=== PATIENT | male | born 1995 | race Caucasian/White ===

== ENCOUNTER 2025-02-06 14:04 | Emergency (ER) | payer OTHER, SELFPAY ==
[2025-02-06] VITALS (17 sets, daily range): BP systolic 137–162; BP diastolic 69–89; PULSE 74–102; RESP 15–16; TEMP 37.7; O2SAT 96–100; BMI 35.7
[2025-02-06] MEDS: PROCHLORPERAZINE 10 MG/2 ML VIAL 5 MG IV (18:36)
[2025-02-06] MEDS: diphenhydrAMINE 50 MG/ML VIAL IV (18:36)
[2025-02-06] MEDS: SODIUM CHLORIDE 0.9% 1,000 ML 1000 ML IV (18:36)
[2025-02-06] MEDS: KETOROLAC 30 MG/ML VIAL 15 MG IV (18:38)
[2025-02-06 18:40] LABS: Add Manual Diff / Slide Review NO; Hematocrit 39.2 % (41-53); Hemoglobin 14.0 g/dL (13.5-17.5); Lymphocytes Absolute Auto 500 /uL (1100-4500); Mean Corpuscular HGB Conc 35.7 % (30-36); Mean Corpuscular Hemoglobin 27.9 PG (26-34); Mean Corpuscular Volume 78.1 fL (80-100); Platelet Count 253 X10^3/uL (150-400)
[2025-02-06 18:44] LABS: Albumin 4.9 g/dL (3.5-5.0); Albumin Globulin Ratio 1.5 (1.0-2.8); Blood Urea Nitrogen 11 mg/dL (9-20); Chloride 101 mmol/L (98-107); Globulin 3.2 g/dL (1.7-4.1); Potassium 4.3 mmol/L (3.4-5.1); Sodium 134 mmol/L (137-145); Total Protein 8.1 g/dL (6.3-8.2)
[2025-02-06 18:47] LABS: Alanine Aminotransferase 123 IU/L (<50); Alkaline Phosphatase 88 U/L (38-126); Calcium 9.7 mg/dL (8.4-10.2); Carbon Dioxide 22 mmol/L (22-32); Estimated Glomerular Filt Rate > 60 mL/min (>60); Glucose 105 mg/dL (70-99); HEMOLYSIS < 15 (0-50); Lipase 160 U/L (23-300); Magnesium 2.0 mg/dL (1.6-2.3)
--- NOTE | 2025-02-06 18:49 | ED.HA ---
HPI - Headache General Chief Complaint: Headache Stated Complaint: Severe headache and nausea Time Seen by Provider: 02/06/25 18:24 Mode of arrival: Wheelchair History of Present Illness HPI Narrative: 29 year old male with no history of recurrent headaches, was well last night, awake this morning with global headache. No injury or trauma. No blurred vision or double vision, denies dizziness. Took Tylenol without relief. Denies recent coughing shortness of breath. Did have chest pain evaluation in [place] Friday, with some shortness of breath at the time. Denies shortness of breath or chest pain now. No focal weakness to face arm or leg. No focal numbness to face arm or leg. Has nausea and emesis x3, no blood in emesis. No loose stools diarrhea. Denies abdominal pain. Denies fevers or chills. Denies neck pain. Related Data Allergies Allergy/AdvReac Type Severity Reaction Status Date / Time No Known Drug Allergies Allergy Verified 02/06/25 14:24 Patient History Social History Smoking Status: Never smoker Smoking Status: Never smoker Exam Narrative Exam Narrative: GENERAL: Well-developed patient, in mild distress. HEAD: Atraumatic. Normocephalic. No scalp lesions obvious. EYES: Pupils equal round and reactive. Extraocular motions intact. No scleral icterus. No injection or drainage. ENT: No obvious facial droop, no craniofacial trauma. NECK: Trachea midline. No neck tenderness, moves head [id number] without discomfort, chin to chest without discomfort. CARDIOVASCULAR: Regular rate and rhythm without murmurs, gallops, or rubs. RESPIRATORY: Clear to auscultation. Breath sounds equal bilaterally. No wheezes, rales, or rhonchi. GASTROINTESTINAL: Abdomen soft, non-tender, nondistended. EXTREMITIES: No edema or joint tenderness. BACK: Nontender without deformity or crepitance. No flank tenderness. NEURO: AOx3. Motor functions grossly nonfocal. SKIN: No rash or erythema of visible areas Initial Vital Signs Initial Vital Signs: Vital Signs Temperature 99.8 F H 02/06/25 14:20 Pulse Rate 81 02/06/25 14:20 Respiratory Rate 15 02/06/25 14:20 Blood Pressure 161/80 H 02/06/25 14:20 Pulse Oximetry 100 02/06/25 14:20 Oxygen Delivery Method Room Air 02/06/25 14:20 Course Orders Ordered: Discontinued Medications Hydrocodone Bitart/Acetaminophen (Hydrocodone/Acet 5/325 Tablet) 1 tab PO NOW ONE Stop: 02/06/25 22:01 Last Admin: 02/06/25 22:15 Dose: 1 tab Documented By: FORTUNATO Diphenhydramine HCl (Diphenhydramine 50 Mg/Ml Vial) 50 mg IV NOW ONE Stop: 02/06/25 18:29 Last Admin: 02/06/25 18:36 Dose: 50 mg Documented By: FORTUNATO Sodium Chloride (Normal Saline 0.9%) 1,000 mls @ 1,000 mls/hr IV BOLUS ONE Stop: 02/06/25 19:23 Last Infusion: 02/06/25 19:46 Dose: Infused Documented By: Admin: 02/06/25 18:36 Dose: 1,000 mls/hr Documented By: FORTUNATO Ketorolac Tromethamine (Ketorolac 30 Mg/Ml Vial) 15 mg IV NOW ONE Stop: 02/06/25 18:30 Last Admin: 02/06/25 18:38 Dose: 15 mg Documented By: FORTUNATO Prochlorperazine (Prochlorperazine 10 Mg/2 Ml Vial) 5 mg IV NOW ONE Stop: 02/06/25 18:29 Last Admin: 02/06/25 18:36 Dose: 5 mg Documented By: FORTUNATO Vital Signs Vital signs: Vital Signs - 8 hr 02/06/25 22:00 02/06/25 22:00 02/06/25 22:30 Pulse Rate 78 74 Respiratory Rate 16 Blood Pressure 147/78 H Pulse Oximetry 99 100 Oxygen Delivery Method Room Air 02/06/25 22:30 02/06/25 23:00 02/06/25 23:00 Pulse Rate 82 Respiratory Rate 16 Blood Pressure 148/69 H 146/75 H Pulse Oximetry 98 Oxygen Delivery Method Room Air 02/06/25 23:30 02/07/25 00:00 02/07/25 00:30 Pulse Rate 80 80 71 Respiratory Rate Blood Pressure Pulse Oximetry 98 98 99 Oxygen Delivery Method Room Air 02/07/25 00:42 02/07/25 00:43 02/07/25 01:31 Pulse Rate 87 Respiratory Rate 16 Blood Pressure 145/81 H Pulse Oximetry 99 99 Oxygen Delivery Method 02/07/25 01:31 Pulse Rate Respiratory Rate 18 Blood Pressure 148/82 H Pulse Oximetry Oxygen Delivery Method MDM - Headache Lab Data Attestation: I reviewed the patient's lab results. Lab results narrative: White blood cell count 9400, hemoglobin 14, platelets adequate. Glucose 105. Normal renal function, serum CO2, potassium. Sodium 134 slight low. ALT slight elevation, other liver functions normal. Lipase normal. 02/06/25 17:19 02/06/25 17:19 Labs: Lab Results 02/06/25 Range/Units 17:19 WBC 9.4 (4.5-11.0) X10^3/uL RBC 5.01 (4.5-5.9) X10^6/uL Hgb 14.0 (13.5-17.5) g/dL Hct 39.2 L (41-53) % MCV 78.1 L (80-100) fL MCH 27.9 (26-34) PG MCHC 35.7 (30-36) % RDW 14.2 (11.6-14.8) % Plt Count 253 (150-400) X10^3/uL Neut % (Auto) 88.7 H (50-75) % Lymph % (Auto) 5.3 L (25-40) % [place] % (Auto) 5.9 (3-14) % Eos % (Auto) 0.1 L (2-4) % Baso % (Auto) 0.0 (0-2) % Neut # (Auto) 8300 H (3585-5278) /uL Lymph # (Auto) 500 L (8648-0933) /uL [place] # (Auto) 500 (0-900) /uL Eos # (Auto) 0 (0-450) /uL Baso # (Auto) 0 (0-100) /uL Sodium 134 L (137-145) mmol/L Potassium 4.3 (3.4-5.1) mmol/L Chloride 101 (98-107) mmol/L Carbon Dioxide 22 (22-32) mmol/L BUN 11 (9-20) mg/dL Creatinine 0.74 (0.66-1.25) mg/dL Estimated GFR > 60 (>60) mL/min BUN/Creatinine Ratio 14.9 (6-22) Glucose 105 H (70-99) mg/dL Calcium 9.7 (8.4-10.2) mg/dL Magnesium 2.0 (1.6-2.3) mg/dL Total Bilirubin 0.8 (0.2-1.3) mg/dL AST 52 (17-59) IU/L ALT 123 H (<50) IU/L Alkaline Phosphatase 88 (38-126) U/L Total Protein 8.1 (6.3-8.2) g/dL Albumin 4.9 (3.5-5.0) g/dL Globulin 3.2 (1.7-4.1) g/dL Albumin/Globulin Ratio 1.5 (1.0-2.8) Lipase 160 (23-300) U/L Imaging Data CT scan - head: Radiologist's Impression: [address] [address] [address] Scan Report Signed Patient: Zay Montes MR#: [id number] : 1995 Acct:[id number] Age/Sex: 29 / M Date of Service: 02/06/25 Loc: ED Accession Number: [id number] Procedure: CT head/brain wo con Ordering Provider: Ramon Banda MD PROCEDURE: CT HEAD/BRAIN WO CON INDICATIONS: severe headache TECHNIQUE: Noncontrast 4.5 mm thick angled axial sections acquired from the foramen magnum to the vertex, with coronal and sagittal reformats. For radiation dose reduction, the following was used: automated exposure control, adjustment of mA and/or kV according to patient size. COMPARISON: None. FINDINGS: Image quality: Diagnostic. CSF spaces: Basal cisterns are patent. No extra-axial fluid collections. Ventricles are normal in size and shape. Brain: No midline shift. No intracranial mass effect or hemorrhage. Vaughan-white matter interface is normal. Skull and face: Calvarium and visualized facial bones are intact, without suspicious lesions. Sinuses: Visualized sinuses and mastoids are clear. IMPRESSION: No acute intracranial pathology. Dictated by: Mundo Garcia M.D. on 02/06/2025 at 19:16 Approved by: Mundo Garcia M.D. on 02/06/2025 at 19:17 [facility] Narrative Medical decision making narrative: 29-year-old male with global headache onset this morning, nontraumatic, afebrile, SIRS screen negative. Nonfocal exam, able to move neck [id number], no nuchal rigidity. He does not usually have headaches. No blood thinner medications. CT head noncontrast. IV fluid, Compazine, Benadryl, Toradol. Lab data: White blood cell count 9400, hemoglobin 14, platelets adequate. Glucose 105. Normal renal function, serum CO2, potassium. Sodium 134 slight low. ALT slight elevation, other liver functions normal. Lipase normal. CT head noncontrast, no acute changes. See radiology report. Symptoms improving. Symptoms further improved, tolerated ambulation trial. Per nursing feels like he would like to go home. Discharged home with family. Return precautions discussed. Discharge Plan Departure Patient Disposition: Home Clinical Impression: Headache Activity Restrictions/Additional Instructions: Headache of unclear etiology, improved after symptomatic treatment. CT head noncontrast study unrevealing. You were able to take oral fluids, you were able to ambulate in the emergency department. Consider taking Tylenol and or Motrin as needed for pain control. Recheck with your regular doctor mid this week if not improved further. Return to this/nearest emergency department for any change worsening symptoms or any concerns prior. Referrals: ProviderDylan [Primary Care Provider, Family Practice] Stand Alone Forms: Patient Portal/API
[2025-02-07] VITALS: PULSE 80; O2SAT 98
[2025-02-07 00:30] VITALS: PULSE 71; O2SAT 99
[2025-02-07 00:42] VITALS: RESP 16; O2SAT 99
[2025-02-07 00:43] VITALS: BP 145/81
[2025-02-07 01:31] VITALS: BP 148/82; PULSE 87; RESP 18; O2SAT 99
== END 2025-02-07 01:41 | disposition home or self-care (01) ==
PROVIDERS: Emergency Provider Emergency Medicine
DX: R51.9 Headache, unspecified (principal); R11.2 Nausea with vomiting, unspecified
CPT/HCPCS: 70450; 80053; 83690; 83735; 85025; 96361; 96374; 96375; 99284; J0780; J1200; J1885; J7030